=== PATIENT | male | born 1960 | race Caucasian/White ===

== ENCOUNTER 2024-11-08 07:28 | Day surgery (SDC) | payer BC, MEDICARE, OTHER ==
[2024-11-08] MEDS ORDERED: Lactated Ringers 1,000 ML IV ONE (07:29)
[2024-11-08] MEDS ORDERED: Propofol 200 MG/20 ML SDV IV ONE (07:29)
[2024-11-08] MEDS: Lactated Ringers 1,000 ML IV SCH (07:58)
[2024-11-08 10:05] VITALS: BP 133/74; PULSE 52
== END 2024-11-08 10:23 | disposition home or self-care (01) ==
LOC: DL.ENDO 07:28
PROVIDERS: ATTEND Internal Medicine Gastroenterology
DX: Z12.11 Encounter for screening for malignant neoplasm of colon (principal); D12.4 Benign neoplasm of descending colon; K57.30 Diverticulosis of large intestine without perforation or abscess without bleeding; E66.09 Other obesity due to excess calories; F17.210 Nicotine dependence, cigarettes, uncomplicated; Z68.31 Body mass index [BMI] 31.0-31.9, adult; Z91.041 Radiographic dye allergy status; Z86.0100 Personal history of colon polyps, unspecified
CPT/HCPCS: 00811; 45385; 88305; J2704; J7120